=== PATIENT | female | born 1975 | race Hispanic/Latino ===

== ENCOUNTER 2021-11-15 09:32 | Emergency (ER) | payer SELFPAY ==
[2021-11-15] MEDS ORDERED: Acetaminophen 500 MG TAB ONE (12:18)
[2021-11-15] MEDS ORDERED: Ibuprofen 800 MG TAB ONE (12:18)
[2021-11-15 21:30] LABS: SARS-CoV-2 PCR by NAA DETECTED (NotDetected)
== END 2021-11-15 13:16 | disposition home or self-care (01) ==
LOC: ERS 09:32
DX: U07.1 COVID-19 (principal)
CPT/HCPCS: 71045; U0003; U0005

== ENCOUNTER 2023-05-28 19:46 | Emergency (ER) | payer SELFPAY ==
[2023-05-28 20:56] LABS: #Basophils 0.1 thou/uL (0.0-0.2); #Eosinphils 0.6 thou/uL (0.0-0.7); #Monocytes 0.6 thou/uL (0.11-0.59); #Neutrophils 6.5 thou/uL (1.40-6.50); %Basophils 0.5 % (0.0-1.0); %Eosinophils 6.2 % (0.0-10.0); %Monocytes 5.6 % (0.0-10.0); %Neutrophils 65.4 % (42.0-75.0); Mean Corpuscular HGB CONC 32.6 g/dL (32.0-36.0); Mean Corpuscular Hemoglobin 26.6 pg (27.0-31.0); Mean Corpuscular Volume 81.6 fl (78.0-98.0); Mean Platelet Volume 9.5 fL (7.4-10.4); Platelet Count 433 10x3/uL (130-400); RBC Distribution Width 13.5 % (11.5-14.5); Red Blood Cell (RBC) Count 3.76 mill/uL (4.20-5.40); White Blood Cell (WBC) Count 9.9 10x3/uL (4.8-10.8)
[2023-05-28] MEDS ORDERED: Ketorolac Tromethamine 30 MG/ML VIAL ONE (21:07)
[2023-05-28] MEDS ORDERED: Dicyclomine 20 MG TAB ONE (21:07)
[2023-05-28] MEDS ORDERED: Acetaminophen 500 MG TAB ONE (21:07)
[2023-05-28] MEDS ORDERED: Ondansetron PF 4 MG/2 ML Vial ONE (21:07)
[2023-05-28 21:22] LABS: ALT (SGPT) 18 U/L (8-55); AST (SGOT) 13 U/L (5-34); Albumin 4.2 g/dL (3.5-5.0); Alkaline Phosphatase 90 U/L (40-110); Anion Gap 13 mmol/L (10-20); BUN (Urea Nitrogen) 10 mg/dL (7.0-18.7); Bilirubin, Total 0.6 mg/dL (0.2-1.2); Calc. Creatinine Clearance 0 mL/min (70-130); Calcium 9.2 mg/dL (7.8-10.44); Carbon Dioxide 26 mmol/L (22-29); Chloride 102 mmol/L (98-107); Estimated GFR 99; Glucose 117 mg/dL (70-105); Lipase 33 U/L (8-78); Potassium 3.4 mmol/L (3.5-5.1); Protein, Total 7.2 g/dL (6.0-8.3); Sodium 138 mmol/L (136-145)
== END 2023-05-28 22:55 | disposition home or self-care (01) ==
LOC: ERS 19:46
DX: E86.0 Dehydration (principal); R11.2 Nausea with vomiting, unspecified; R19.7 Diarrhea, unspecified
CPT/HCPCS: 71045; 80053; 83690; 84484; 85025; 93005; 96361; 96374; 96375; J1885; J2405

== ENCOUNTER 2023-06-01 10:33 | Emergency (ER) | payer SELFPAY ==
[2023-06-01] MEDS ORDERED: Meclizine HCl 25 MG TAB ONE (11:16)
[2023-06-01 11:41] LABS: #Basophils 0.1 thou/uL (0.0-0.2); #Eosinphils 0.7 thou/uL (0.0-0.7); #Monocytes 0.4 thou/uL (0.11-0.59); #Neutrophils 8.4 thou/uL (1.40-6.50); %Basophils 0.4 % (0.0-1.0); %Lymphocytes 16.2 % (21.0-51.0); %Monocytes 3.7 % (0.0-10.0); %Neutrophils 73.4 % (42.0-75.0); Hematocrit 33.3 % (36.0-47.0); Hemoglobin 10.9 g/dL (12.0-16.0); Mean Corpuscular HGB CONC 32.7 g/dL (32.0-36.0); Mean Corpuscular Hemoglobin 26.8 pg (27.0-31.0); Mean Platelet Volume 9.7 fL (7.4-10.4); Platelet Count 434 10x3/uL (130-400); Red Blood Cell (RBC) Count 4.06 mill/uL (4.20-5.40); White Blood Cell (WBC) Count 11.4 10x3/uL (4.8-10.8)
[2023-06-01 12:06] LABS: ALT (SGPT) 14 U/L (8-55); AST (SGOT) 13 U/L (5-34); Albumin 4.1 g/dL (3.5-5.0); Alkaline Phosphatase 88 U/L (40-110); Anion Gap 15 mmol/L (10-20); BUN (Urea Nitrogen) 11 mg/dL (7.0-18.7); Bilirubin, Total 0.9 mg/dL (0.2-1.2); Calc. Creatinine Clearance 0 mL/min (70-130); Calcium 9.5 mg/dL (7.8-10.44); Carbon Dioxide 26 mmol/L (22-29); Chloride 100 mmol/L (98-107); Estimated GFR 101; Globulin 3.3 g/dL (2.4-3.5); Glucose 116 mg/dL (70-105); Potassium 3.8 mmol/L (3.5-5.1); Protein, Total 7.4 g/dL (6.0-8.3); Sodium 137 mmol/L (136-145)
[2023-06-01 13:32] LABS: BHCG - Serum Negative (NEGATIVE); Pregs Control Background? CLEAR/WHITE (CLR/WHITE); Pregs Control Bar Appear? YES (CONTROL BAR)
[2023-06-01] MEDS ORDERED: Iopamidol-370 76% 500 ML MDV (1 ML CHARGE) ONE (13:57)
== END 2023-06-01 16:18 | disposition home or self-care (01) ==
LOC: ERS 10:33
DX: R42 Dizziness and giddiness (principal); R51.9 Headache, unspecified
CPT/HCPCS: 70496; 84703; 93005; Q9967

== ENCOUNTER 2024-03-05 12:58 | Emergency (ER) | payer SELFPAY ==
[2024-03-05 14:05] LABS: #Basophils 0.05 10x3/uL (0.0-0.2); %Basophils 0.5 % (0.0-1.0); %Eosinophils 11.5 % (0.0-10.0); %Lymphocytes 23.7 % (21.0-51.0); %Monocytes 5.7 % (0.0-10.0); %Neutrophils 58.4 % (42.0-75.0); Hematocrit 38.5 % (36.0-47.0); Hemoglobin 13.3 g/dL (12.0-16.0); Mean Corpuscular HGB CONC 34.5 g/dL (32.0-36.0); Mean Corpuscular Hemoglobin 30.1 pg (27.0-31.0); Mean Corpuscular Volume 87.1 fL (78.0-98.0); Mean Platelet Volume 10.3 fL (7.4-10.4); Platelet Count 367 10x3/uL (130-400); RBC Distribution Width 12.7 % (11.5-14.5); Red Blood Cell (RBC) Count 4.42 mill/uL (4.20-5.40)
[2024-03-05 14:22] LABS: Globulin 3.9 g/dL (2.4-3.5)
[2024-03-05 14:27] LABS: ALT (SGPT) 19 U/L (8-55); AST (SGOT) 17 U/L (5-34); Albumin 3.9 g/dL (3.5-5.0); Alkaline Phosphatase 92 U/L (40-110); Anion Gap 15 mmol/L (10-20); BUN (Urea Nitrogen) 12 mg/dL (7.0-18.7); Bilirubin, Total 0.9 mg/dL (0.2-1.2); Calc. Creatinine Clearance 0 mL/min (70-130); Calcium 9.9 mg/dL (7.8-10.44); Carbon Dioxide 24 mmol/L (22-29); Chloride 104 mmol/L (98-107); Estimated GFR 107; Glucose 85 mg/dL (70-105); Potassium 4.2 mmol/L (3.5-5.1); Protein, Total 7.8 g/dL (6.0-8.3); Sodium 139 mmol/L (136-145)
[2024-03-05] MEDS ORDERED: diphenhydrAMINE 50 MG/ML VIAL ONE (14:48)
[2024-03-05] MEDS ORDERED: Acetaminophen 500 MG TAB ONE (14:48)
[2024-03-05] MEDS ORDERED: Ketorolac Tromethamine 30 MG (1 mL) VIAL ONE (14:48)
[2024-03-05] MEDS ORDERED: Meclizine HCl 25 MG TAB ONE (14:48)
[2024-03-05] MEDS ORDERED: Metoclopramide HCl 10 MG (2 mL) VIAL ONE (14:48)
[2024-03-05 15:16] LABS: Bacteria/HPF None Seen HPF (None Seen); Bilirubin Negative (Negative); Blood, Urine Negative (Negative); CAUTI Indications for Culture Dysuria,urgency,freq; Clarity Clear (Clear); Glucose, Urine (Dipstick) Normal (Negative); Ketone, Urine Negative (Negative); Leukocyte 25 Leu/uL (Negative); Nitrite Negative (Negative); Protein, Urine (Dipstick) Negative (Neg-Trace); RBC/HPF 0-3 HPF (0-3); Specific Gravity, Urine 1.015 (1.002-1.036); Squamous Epithelial 0-3 HPF (0-3); Urobilinogen Normal mg/dL (Less than 2); WBC/HPF 0-3 HPF (0-3); pH, Urine 6.5 (5.0-9.0)
[2024-03-05 15:18] LABS: Urine Culture Reflex No No
[2024-03-05 15:46] LABS: Troponin I Less than 0.010 ng/mL (< 0.028)
== END 2024-03-05 16:55 | disposition home or self-care (01) ==
LOC: ERS 12:58
DX: R53.1 Weakness (principal); R42 Dizziness and giddiness; R19.8 Other specified symptoms and signs involving the digestive system and abdomen; E78.5 Hyperlipidemia, unspecified; D64.9 Anemia, unspecified; R29.700 NIHSS score 0; Z79.899 Other long term (current) drug therapy
CPT/HCPCS: 36415; 71045; 80053; 81001; 84484; 85025; 93005; 96365; 96375; J1200; J1885; J2765